=== PATIENT | male | born 1940 | race Caucasian/White ===

== ENCOUNTER 2016-08-24 02:03 | Emergency (ER) | payer OTHER ==
[~2016-08-24 02:03] MED LIST: AMOX875T20 PO; CLEO300C2 PO; LEVO.025 PO; VENTAER INH
[2016-08-24 02:05] VITALS: BP 165/75; PULSE 84; RESP 18; TEMP 98.1; O2SAT 95
[2016-08-24] MEDS ORDERED: TAMS5CAP PO (02:28)
[2016-08-24] MEDS ORDERED: ALLO100T PO (02:28)
[2016-08-24] MEDS ORDERED: MULT-207 PO (02:28)
[2016-08-24] MEDS ORDERED: ASPI1TAB69 PO (02:28)
[2016-08-24 02:33] LABS: AUTOMATED NEUTROPHIL # 9.4 TH/MM3 (1.8-7.7); BASOPHIL # 0.1 TH/MM3 (0-0.2); BASOPHIL % 0.6 % (0.0-2.0); EOSINOPHIL # 0.1 TH/MM3 (0-0.4); EOSINOPHIL % 1.2 % (0.0-4.0); HEMATOCRIT 39.2 % (39.0-51.0); HEMO FLAGS DIFF FINAL; LYMPH % 13.1 % (9.0-44.0); LYMPHOCYTE # 1.6 TH/MM3 (1.0-4.8); MEAN CELL VOLUME 87.3 FL (80.0-100.0); MEAN CORPUSCULAR HEMOGLOBIN 29.7 PG (27.0-34.0); MONO % 5.9 % (0.0-8.0); NEUT % 79.2 % (16.0-70.0); PLATELET COUNT 173 TH/MM3 (150-450); RED BLOOD COUNT 4.49 MIL/MM3 (4.50-5.90); WHITE BLOOD COUNT 11.9 TH/MM3 (4.0-11.0)
[2016-08-24 02:39] VITALS: BP 163/73; PULSE 83; RESP 20; O2SAT 100
--- NOTE | 2016-08-24 03:06 | RADRPT ---
EXAM DATE/TIME: 08/24/2016 02:45 [facility] COMPARISON: CHEST SINGLE AP, August 10, 2012, 18:21. INDICATIONS : Chest pain. MEDICAL HISTORY : None. SURGICAL HISTORY : None. ENCOUNTER: Initial ACUITY: 1 day PAIN SCORE: 0/10 LOCATION: Bilateral chest FINDINGS: Slight bibasilar atelectasis and/or infiltrate is seen with prevascular component. Heart and mediasti num are unremarkable for technique. CONCLUSION: Probable pulmonary edema. Lenny Johnson MD on August 24, 2016 at 3:04 Board Certified Radiologist. This report was verified electronically.
[2016-08-24 03:07] LABS: ALT (GPT) 25 U/L (12-78); ANION GAP 10 MEQ/L (5-15); AST (GOT) 25 U/L (15-37); BICARBONATE 25.3 MEQ/L (21.0-32.0); BLOOD UREA NITROGEN 16 MG/DL (7-18); CHLORIDE 104 MEQ/L (98-107); GLOMERULAR FILTRATION RATE 55 ML/MIN (>89); POTASSIUM 3.9 MEQ/L (3.5-5.1); SODIUM (NA) 139 MEQ/L (136-145)
[2016-08-24 03:09] LABS: ALKALINE PHOSPHATASE 90 U/L (45-117); TOTAL BILIRUBIN ADULT 0.7 MG/DL (0.2-1.0)
[2016-08-24] MEDS ORDERED: IOHEXOL 350 MG/ML 10 ML VIAL (for RAD DIAG) IV ONE (03:27)
[2016-08-24] MEDS ORDERED: SODIUM CHLOR 0.9% 1000 ML INJ 1,000 ML IV ONE (03:30)
[2016-08-24] MEDS ORDERED: ONDANSETRON HCL 4 MG/2 ML VIAL IV ONE (03:30)
[2016-08-24] MEDS ORDERED: MORPHINE SULFATE 4 MG/ML INJ IV PUSH ONE (03:30)
--- NOTE | 2016-08-24 03:30 | PD ---
HPI Chief Complaint: Abdominal Pain Time Seen by Provider: 03:05 Travel History International Travel<30 days: No Contact w/Intl Traveler<30days: No Traveled to known affect area: No History of Present Illness HPI The patient is a 75 year old male who presents to the [facility] emergency department with a history of right upper quadrant abdominal pain that he reports began at approximately 9 AM on Monday. He reports that it began after he had difficulty moving his bowels and was straining. He reports that he drank some prune juice after that and also ate prunes. He then proceeded to have a normal bowel movement an hour later. He denies having any blood in his stool or black or tarry stools. He reports that prior to this he had been constipated for 2 days. He reports that he has recently noticed over the last couple weeks that his urine has looked darker than usual. He also reports that a week and a half to 2 weeks ago he had a couple of days of right flank pain. He denies having any prior history of kidney stones or kidney infections. He reports that he does have urinary frequency and nocturia 2-3 times per night, however this is been chronic and thought to be related to his prostate enlargement. The patient reports that the pain is sharp in character and constant. He reports that it occasionally gets still when he stops moving and just relaxes in bed. He reports that any movement or flexing his abdomen makes it worse. He reports that taking a deep breath also makes it worse. He reports that over the last few months his recent history has been complicated by having a chronic cough productive of phlegm intermittently. He said he does have a history of sinus congestion and seasonal allergies. He reports that he has a history of smoking, however he quit smoking approximately 30 years ago. He denies having any history of COPD. He denies having any chest pain, chest pressure, or shortness of breath. He denies having any dysuria or urinary urgency. He does however report that his urine has smelled stronger than usual over the last 2-3 days. He denies having any nausea or vomiting. The patient denies any recent fevers, neck pain, or neurologic symptoms. [facility] Past Medical History Narrative Medical The patient's past medical history is significant for hypothyroid disorder, hypertension, hyperlipidemia, gout. High Cholesterol: Yes Diminished Hearing: No Gout: Yes Genitourinary: Yes (Enlarged prostrate) Hypertension: Yes Thyroid Disease: Yes Tetanus Vaccination: > 5 Years Influenza Vaccination: Yes Past Surgical History Narrative Surgical The patient's past surgical history is significant for toenail removal. Surgical History: No Previous Surgery Social History Alcohol Use: No Tobacco Use: No Substance Use: No Allergies-Medications (Allergen,Severity, Reaction): Coded Allergies: No Known Allergies (Verified , 08/24/16) Reported Meds & Prescriptions Reported Meds & Active Scripts Active Levaquin (Levofloxacin) 500 Mg Tab 500 Mg PO DAILY 7 Days Lortab (Hydrocodone-Acetaminophen) 5-325 Mg Tab 1 Tab PO Q6H PRN Flexeril (Cyclobenzaprine HCl) 5 Mg Tab 5 Mg PO TID PRN Reported Aspirin 81 Mg Tabdr 81 Mg PO DAILY One Daily (Multiple Vitamin) 1 Tab 1 Tab PO DAILY Allopurinol 100 Mg Tab 100 Mg PO DAILY Flomax (Tamsulosin HCl) 0.4 Mg Cap 0.4 Mg PO HS Levothyroxine Sodium 25 Mcg Tab 250 PO DAILY UNKNOWN DOSE Review of Systems Except as stated in HPI: all other systems reviewed are Neg General / Constitutional: No: Fever Eyes: No: Visual changes HENT: No: Headaches Cardiovascular: No: Chest Pain or Discomfort, Dyspnea on exertion Respiratory: Positive: Cough (for 2-3 months), No: Shortness of Breath Gastrointestinal: Positive: Abdominal Pain, Constipation, Changes in Bowel Habits, No: Nausea, Vomiting, Diarrhea, Hematemesis, Hematochezia, Indigestion , Loss of Appetite Genitourinary: No: Dysuria Musculoskeletal: No: Pain Skin: No Rash Neurologic: No: Weakness, Syncope, Focal Abnormalities, Change in Mentation, Slurred Speech, Sensory Disturbance Psychiatric: No: Depression Endocrine: No: Polydipsia Hematologic/Lymphatic: No: Easy Bruising Physical Exam Narrative General: The patient is a well-developed well-nourished male in no acute distress. Head and Neck exam: Head is normocephalic atraumatic. Eyes: EOMI, pupils are equal round and reactive to light. Nose: Midline septum with pink mucous membranes Mouth: Dentition unremarkable. Moist mucus membranes. Posterior oropharynx is not erythematous. No tonsillar hypertrophy. Uvula midline. Airway patent. Neck: No palpable lymphadenopathy. No nuchal rigidity. No thyromegaly. Cardiovascular: Regular rate and rhythm without murmurs, gallops, or rubs. Lungs: Clear to auscultation bilaterally. No wheezes, rhonchi, or rales. Abdomen: Soft, with tenderness on palpation in the right upper quadrant of the abdomen and midepigastric area with a positive Andrade sign. No other tenderness on palpation of the other quadrants of the abdomen. No guarding, rebound, or rigidity. No tenderness on palpation of McBurney's point. Normal bowel sounds are audible. Extremities: No clubbing, cyanosis, or edema. 2+ pulses in all 4 extremities. Back: No spinous process tenderness to palpation. No costovertebral angle tenderness to palpation. Neurologic Exam: Grossly nonfocal. Skin Exam: No rash noted. Intact skin that is warm and dry. Data Data Last Documented VS Vital Signs Date Time Temp Pulse Resp B/P Pulse Ox O2 Delivery O2 Flow Rate FiO2 08/24/16 02:39 83 20 163/73 100 Nasal Cannula 08/24/16 02:38 2 08/24/16 02:05 98.1 Orders Complete Blood Count With Diff (08/24/16 02:13) Comprehensive Metabolic Panel (08/24/16 02:13) Urinalysis - C+S If Indicated (08/24/16 02:13) Iv Access Insert/Monitor (08/24/16 02:13) Oxygen Administration (08/24/16 02:13) Oximetry (08/24/16 02:13) Lipase (08/24/16 02:13) Chest, Single Ap (08/24/16 ) Electrocardiogram (08/24/16 ) Ct Abd/Pel W Iv Contrast(Rout) (08/24/16 03:08) Iohexol 350 Inj (Omnipaque 350 Inj) (08/24/16 03:27) Sodium Chlor 0.9% 1000 Ml Inj (Ns 1000 M (08/24/16 03:30) Ondansetron Inj (Zofran Inj) (08/24/16 03:30) Morphine Inj (Morphine Inj) (08/24/16 03:30) B-Type Natriuretic Peptide (08/24/16 03:32) Ckmb (Isoenzyme) Profile (08/24/16 02:20) Troponin I (08/24/16 02:20) CKMB (08/24/16 02:20) CKMB% (08/24/16 02:20) Labs Laboratory Tests Test 08/24/16 08/24/16 08/24/16 02:20 03:20 03:45 White Blood Count 11.9 TH/MM3 Red Blood Count 4.49 MIL/MM3 Hemoglobin 13.3 GM/DL Hematocrit 39.2 % Mean Corpuscular Volume 87.3 FL Mean Corpuscular Hemoglobin 29.7 PG Mean Corpuscular Hemoglobin 34.0 % Concent Red Cell Distribution Width 15.0 % Platelet Count 173 TH/MM3 Mean Platelet Volume 7.9 FL Neutrophils (%) (Auto) 79.2 % Lymphocytes (%) (Auto) 13.1 % Monocytes (%) (Auto) 5.9 % Eosinophils (%) (Auto) 1.2 % Basophils (%) (Auto) 0.6 % Neutrophils # (Auto) 9.4 TH/MM3 Lymphocytes # (Auto) 1.6 TH/MM3 Monocytes # (Auto) 0.7 TH/MM3 Eosinophils # (Auto) 0.1 TH/MM3 Basophils # (Auto) 0.1 TH/MM3 CBC Comment DIFF FINAL Differential Comment Sodium Level 139 MEQ/L Potassium Level 3.9 MEQ/L Chloride Level 104 MEQ/L Carbon Dioxide Level 25.3 MEQ/L Anion Gap 10 MEQ/L Blood Urea Nitrogen 16 MG/DL Creatinine 1.27 MG/DL Estimat Glomerular Filtration 55 ML/MIN Rate Random Glucose 136 MG/DL Calcium Level 9.3 MG/DL Total Bilirubin 0.7 MG/DL Aspartate Amino Transf 25 U/L (AST/SGOT) Alanine Aminotransferase 25 U/L (ALT/SGPT) Alkaline Phosphatase 90 U/L Total Creatine Kinase 329 U/L Creatine Kinase MB LESS THAN 0.5 NG/ML Creatine Kinase MB % 0.2 % Troponin I LESS THAN 0.02 NG/ML Total Protein 7.8 GM/DL Albumin 4.0 GM/DL Lipase 135 U/L B-Type Natriuretic Peptide 5 PG/ML Urine Color YELLOW Urine Turbidity CLEAR Urine pH 7.0 Urine Specific Barry 1.042 Urine Protein TRACE mg/dL Urine Glucose (UA) NEG mg/dL Urine Ketones NEG mg/dL Urine Occult Blood NEG Urine Nitrite NEG Urine Bilirubin NEG Urine Urobilinogen LESS THAN 2.0 MG/DL Urine Leukocyte Esterase NEG Urine RBC 1 /hpf Urine Squamous Epithelial <1 /hpf Cells Microscopic Urinalysis Comment CULT NOT INDICATED MDM Medical Decision Making Medical Screen Exam Complete: Yes Emergency Medical Condition: Yes Medical Record Reviewed: Yes Interpretation(s) Last Impressions Abdomen/Pelvis CT 08/24/16 0308 Signed Impressions: Service Date/Time: Wednesday, August 24, 2016 03:22 - CONCLUSION: Probable sebaceous cyst in the patient's lower back, otherwise unremarkable study. Lenny Johnson MD Chest X-Ray 08/24/16 0000 Signed Impressions: Service Date/Time: Wednesday, August 24, 2016 02:45 - CONCLUSION: Probable pulmonary edema. Lenny Johnson MD Differential Diagnosis Acute cholecystitis, versus pyelonephritis, versus kidney stone, versus abdominal wall strain, versus biliary colic Narrative Course During the course of the patients emergency department visit, the patients history, examination, and differential diagnosis were reviewed with the patient. The patient had IV access obtained and blood work sent for analysis. The patient was placed on a diamond polisher with oximetry and blood pressure monitoring. The patient had an EKG done on arrival. The patient's EKG shows a sinus rhythm heart rate of 82, right bundle branch block is noted. The patient' s QRS duration is 170 ms, QTC [address] segment elevation or depression, T waves are inverted in V1, V2, V3. The patient was initially provided morphine for pain, Zofran for nausea. The patients laboratory studies were reviewed and remarkable for a white count of 11.9, hemoglobin 13.3, platelets 173 with 79.2 neutrophils, CMP is remarkable for a glucose 136, CPK is 329, MB percent 0.2, troponin I less than 0.02, BNP is 5, lipase 135, urinalysis is unremarkable Radiology studies were reviewed and remarkable for a chest x-ray that shows bilateral lung field haziness that the radiologist determined to be probable pulmonary edema, however given the patient's normal BMP and normal lung examination, I doubt this, however did discuss with the patient the possibility of this being an inflammatory process such as an infection given his productive cough, versus pulmonary fibrosis. He will follow-up with primary care physician for reexamination regarding this. CT scan abdomen and pelvis shows a probable sebaceous cyst of the patient's lower back, prostate enlargement that is not homogeneous and is approximately 5 x 5 cm. No other acute abnormality. The patient on examination reports feeling improved. The patient's symptoms are exacerbated by movement, therefore the patient is suspected to have caused a muscle strain in that area. The patient will be discharged home with a pain medication and muscle relaxer. The patient will be discharged home with an antibiotic. The patient was instructed regarding the importance of close follow -up with his primary care physician for reexamination. The patient additionally was instructed to follow-up with the urologist regarding his prostate enlargement that is not homogeneous on CT. He was given a copy of the CT scan for follow-up. The patient is resting comfortably and feels better, is alert and in no distress. The patients results and examination findings were discussed with the patient. The repeat examination is unremarkable and benign. The history, exam, diagnostic testing, and current condition do not suggest any significant pathology to warrant further testing, continued ED treatment, admission, or surgical evaluation at this point. The vital signs have been stable. The patient does not have uncontrollable pain, intractable vomiting, or other significant symptoms. The patient's condition is stable and appropriate for discharge. The patient will pursue further outpatient evaluation with a primary care physician or other designated or consulting physician as indicated in the discharge instructions. The patient expressed understanding and was agreeable with this plan. Diagnosis Primary Impression: Abdominal pain Qualified Code: R10.11 - Right upper quadrant abdominal pain Additional Impressions: Muscle strain Productive cough Prostate enlargement Referrals: Giovanny Wong MD 1 week Primary Care Physician 2 days Patient Instructions: Abdominal Pain (ED), Chronic Bronchitis (ED), General Instructions Additional Instructions: Follow-up with the urologist regarding prostate enlargement noted on CT. Med/Other Pt SpecificInfo: Prescription(s) given Scripts Levofloxacin (Levaquin)500 Mg Eat953 Mg PO DAILY 7 Days Ref 0 Prov:Petra Barajas MD 08/24/16 Hydrocodone-Acetaminophen (Lortab)5-325 Mg Tab1 Tab PO Q6H PRN (PAIN) #12 TAB Ref 0 Prov:Petra Barajas MD 08/24/16 Cyclobenzaprine (Flexeril)5 Mg Tab5 Mg PO TID PRN (SPASM) #15 TAB Ref 0 Prov:Petra Barajas MD 08/24/16 Disposition: 01 DISCHARGE HOME Condition: Stable Petra Barajas MD August 24, 2016 03:30
[2016-08-24 03:55] LABS: CREATINE KINASE 329 U/L (39-308)
--- NOTE | 2016-08-24 04:07 | RADRPT ---
EXAM DATE/TIME: 08/24/2016 03:22 [facility] COMPARISON: No previous studies available for comparison. INDICATIONS : Right upper quadrant pain and constipation. IV CONTRAST: 100 cc Omnipaque 350 (iohexol) IV ORAL CONTRAST: No oral contrast ingested. RADIATION DOSE: 16.78 CTDIvol (mGy) MEDICAL HISTORY : Hypertension. Thyroid disease. Enlarged prostate. SURGICAL HISTORY : None. ENCOUNTER: Initial ACUITY: 1 day PAIN SCALE: 6/10 LOCATION: Right upper quadrant TECHNIQUE: Volumetric scanning of the abdomen and pelvis was performed. Using automated exposure control and ad justment of the mA and/or kV according to patient size, radiation dose was kept as low as reasonably achievable to obtain optimal diagnostic quality images. FINDINGS: CT Abdomen: The liver, spleen, pancreas, adrenals are unremarkable. There is no evidence for any appr eciable pathological adenopathy, free fluid, or bowel obstruction. There is a tiny approximately 1.4 cm simple cyst in the left kidney. The right kidney is intact. Small hiatal hernia is seen. There is slight atelectasis in the right lung base. CT pelvis: There is no evidence for mass, abscess formation, or any significant adenopathy within the pelvis. The prostate gland is inhomogeneous and measures 5.3 x 5.9 cm in AP and transverse diameters and nonspecific. Approximate 3.1 cm subcutaneous cystic mass is present at the level of L5-S1 project technician iorly in the midline probably a sebaceous cyst should be correlated clinically. CONCLUSION: Probable sebaceous cyst in the patient's lower back, otherwise unremarkable study. Lenny Johnson MD on August 24, 2016 at 4:00 Board Certified Radiologist. This report was verified electronically.
[2016-08-24 04:09] LABS: BLOOD, URINE NEG (NEG); COMMENT (UR) CULT NOT INDICATED; CULTURE IF INDICATED CULT NOT INDICATED; GLUCOSE,URINE NEG (NEG); KETONE, URINE NEG (NEG); NITRITE,URINE NEG (NEG); SQUAMOUS EPITHELIAL CELL URINE <1 /hpf (0-5); URINE COLOR YELLOW (YELLW/STRAW)
[2016-08-24 04:21] LABS: CKMB LESS THAN 0.5 NG/ML (0.5-3.6)
[2016-08-24] MEDS ORDERED: CYCL5TAB PO (04:56)
[2016-08-24] MEDS ORDERED: LEVA500T PO (04:56)
[2016-08-24] MEDS ORDERED: HYDR-3533 PO (04:56)
--- NOTE | 2016-08-24 19:31 | EKG ---
Date Performed: 08/24/2016 Time Performed: 02:19:27 PTAGE: 75 years EKG: Sinus rhythm RIGHT BUNDLE BRANCH BLOCK ABNORMAL ECG PREVIOUS TRACING : 10/07/2008 04.15 DOCTOR: Ronak Santos Interpretating Date/Time 08/24/2016 19:30:05
== END 2016-08-24 05:00 | disposition home or self-care (01) ==
LOC: NEPE 02:03
DX: R10.11 Right upper quadrant pain (principal); S39.011A Strain of muscle, fascia and tendon of abdomen, initial encounter; R05 Cough; R94.31 Abnormal electrocardiogram [ECG] [EKG]; N40.0 Benign prostatic hyperplasia without lower urinary tract symptoms; X58.XXXA Exposure to other specified factors, initial encounter; Y93.9 Activity, unspecified; Y92.9 Unspecified place or not applicable; Y99.9 Unspecified external cause status; I45.10 Unspecified right bundle-branch block; R06.00 Dyspnea, unspecified
CPT/HCPCS: 71010; 74177; 80053; 81001; 82550; 82552; 83690; 83880; 84484; 85025; 93005; 96374; 96375; 99285; J2270; J2405; Q9967